=== PATIENT | male | born 1990 | race Caucasian/White ===

== ENCOUNTER 2019-06-27 13:12 | Emergency (ER) | payer OTHER ==
[~2019-06-27] VITALS: Ht 180.3 cm; Wt 102.1 kg
[2019-06-27 14:18] LABS: MICROSCOPIC NOT IND
[2019-06-27 14:20] LABS: CULTURE INDICATED? NO
[2019-06-27 14:33] VITALS: BP 118/73
--- NOTE | 2019-06-27 16:24 | NUR ---
Patient given discharge instructions and they have confirmed that they understand the instructions. Patient ambulatory with steady gait. Pt left with Rx, d/c paperwork, and all personal belongings. NADN. No needs expressed.
== END 2019-06-27 16:27 | disposition home or self-care (01) ==
LOC: ED 15:25
DX: S30.22XA Contusion of scrotum and testes, initial encounter (principal); Z88.0 Allergy status to penicillin; Z87.891 Personal history of nicotine dependence; X58.XXXA Exposure to other specified factors, initial encounter; Y93.89 Activity, other specified; Y92.89 Other specified places as the place of occurrence of the external cause; Y99.8 Other external cause status
CPT/HCPCS: 76870; 81003; 99284